=== PATIENT | male | born 1995 | race Caucasian/White ===

== ENCOUNTER 2019-08-31 16:00 | Emergency (ER) | payer OTHER, SELFPAY ==
--- NOTE | ~2019-08-31 | XR_ITS ---
EXAMINATION: XR abdomen/kub 1V EXAM DATE: 08/31/2019 16:43 INDICATION: Left lower abdominal pain for 4 days. Low pressure. TECHNIQUE: Frontal projection of the upper abdomen, frontal projection of the lower abdomen for inter pretation. There is no prior study for comparison. FINDINGS: Small amount of colonic stool and gas. No small bowel dilation, nonobstructive bowel gas pattern. There are no suspicious calcifications identified. There is no organomegaly suspected. The bones are unremarkable. Lung bases are clear. IMPRESSION: Unremarkable abdomen x-ray exam. Reviewed, dictated and finalized at location A.
--- NOTE | 2019-08-31 16:16 | ED.ABDPAIN ---
HPI - Abdominal Pain General Chief Complaint: Abdominal Pain Stated Complaint: abd pain Time Seen by Provider: 08/31/19 16:29 Source: patient and RN notes reviewed Mode of arrival: ambulatory Limitations: no limitations History of Present Illness HPI narrative: 24-year-old male presents with concern for constipation, abdominal pain. Reports several days ago he had diarrhea, so he took Imodium. Reports since Then He Is Been Only Having Small Soft Stools. Reports symptoms started wednesday after a 9 [address] ride. Denies fever, nausea, vomiting. Reports position improved symptoms, lying flat symptoms worsen. Reports symptoms are worse at night. Reports slightly decreased appetite MD elicited complaint: abdominal pain Related Data Home Medications Medication Instructions Recorded Confirmed fluoxetine [Prozac] 10 mg PO DAILY 08/31/19 08/31/19 Allergies Allergy/AdvReac Type Severity Reaction Status Date / Time No Known Allergies Allergy Verified 08/31/19 16:37 Review of Systems Review of Systems: Narrative: CONSTITUTIONAL: Denies malaise, chills, sweats, or fever. CARDIOVASCULAR: Denies chest pain, palpitations, or edema. RESPIRATORY: Denies cough or dyspnea. GASTROINTESTINAL: Reports left lower quadrant abdominal pain, constipation; reports small amount of soft watery stool. Denies nausea, vomiting, diarrhea, bloody, or mucous stools. GENITOURINARY: Denies dysuria or hematuria. MUSCULOSKELETAL: Denies myalgia. All systems reviewed & are unremarkable except as noted in HPI and below PMFSH Social History Social History Gender identity (if verbalized by the patient): Male Comments At time of signature, agree with nursing past medical, surgical, social and family history. There is no relevant family history pertinent to the presenting complaint Exam Narrative: Exam Narrative: GENERAL: Well-appearing, well-nourished, and in no acute distress. HEAD: Normocephalic EYES: PERRLA, conjunctivae clear ENT: Mucous membranes moist. NECK: Supple. No lymphadenopathy CHEST: Speaks in full sentences. No respiratory distress. HEART: Regular rate and rhythm. ABDOMEN: LLQ tenderness. Soft, flat, nondistended. No guarding, rebound tenderness, or rigid. No pulsatille masses. Bowel sounds present in all four quadrants. No organomegaly. Negative Kerr?s sign. No periumbilical tenderness. No Supra public tenderness or distension. Good femoral pulses bilaterally. No hernia noted. No scars or surface trauma. SKIN: Warm, dry, no rash. NEURO: Alert and oriented x3. PSYCH: Normal mood and affect Course Course Emergency Course: Patient is aware of, understands and agrees to be seen in the emergency department. Patient agrees to proceed directly to the emergency department. Portions of this record may have been created with voice recognition software Vital Signs Vital signs: Reviewed. Transfer Transfered to: [facility] Transportation: Other (Private vehicle) Transfer rationale: Abdominal pain Accepting physician: Dr. Pham Transfer comments: Patient stable for transfer via private vehicle MDM - Abdominal Pain MDM Narrative Medical decision making narrative: Patient's history and exam warrant further evaluation in the emergency department. Patient agrees to proceed directly to emergency department. Patient is stable for transfer via private vehicle Imaging Data My impression: Images reviewed, interpreted by radiologist, agree, see report. Radiologist's impression: EXAMINATION: XR abdomen/kub 1V EXAM DATE: 08/31/2019 16:43 INDICATION: Left lower abdominal pain for 4 days. Low pressure. TECHNIQUE: Frontal projection of the upper abdomen, frontal projection of the lower abdomen for interpretation. There is no prior study for comparison. FINDINGS: Small amount of colonic stool and gas. No small bowel dilation, nonobstructive bowel gas pattern. There are no suspicious calcifications identified. There is no organomegal
[2019-08-31 16:27] VITALS: BP 132/73; PULSE 84; RESP 18; TEMP 37.1; O2SAT 100
== END 2019-08-31 17:02 | disposition short-term general hospital (02) ==
PROVIDERS: Emergency Provider Nurse Practitioner; PCP Family Medicine
DX: R10.32 Left lower quadrant pain (principal)
CPT/HCPCS: 74018; 99203; G0463

== ENCOUNTER 2019-08-31 17:20 | Emergency (ER) | payer OTHER, SELFPAY ==
--- NOTE | ~2019-08-31 | CT_ITS ---
EXAMINATION: CT abdomen pelvis w con EXAM DATE: 08/31/2019 20:00 INDICATION: Left lower quadrant pain for 6 days. Diarrhea. TECHNIQUE: Spiral CT of the abdomen and pelvis was performed without contrast. Axial, coronal and s agittal images were reviewed. The dose-length product (DLP) for this examination was 202.33 mGy-cm. The exposure was tailored according to patient size (auto mA exposure control), and iterative recons truction (ASIR) was used as additional dose reduction technique. There is no prior study for compari son. FINDINGS: The liver, spleen, adrenal glands and pancreas are unremarkable. Gallbladder is unremarkab le. No biliary obstruction. Portal and splenic veins are patent. Kidneys enhance symmetrically. T here is no hydronephrosis. The prostate is unremarkable. The bladder is unremarkable. There is no retroperitoneal or pelvic lymphadenopathy. The appendix is normal. The stomach and small bowel are unremarkable. There is severe cecal wall ed geraldine suspected, consistent with colitis. No pneumatosis. Remainder of the colon is unremarkable. Trace reactive free pelvic fluid. No free intraperitoneal gas. The heart is normal in size. There are no pericardial or pleural effusions. The lung bases are unremarkable. The bones are normal. IMPRESSION: Significant ascending colonic wall edema, likely colitis. Reviewed, dictated and finalized at location A.
[2019-08-31 17:20] VITALS: BP 129/81; PULSE 78; RESP 16; TEMP 36.8; O2SAT 100
[2019-08-31 17:52] LABS: Basophils Percent Auto 0.5 % (0.2-1.2); Eosinophils Absolute Auto 0.1 K/mm3 (0-0.3); Eosinophils Percent Auto 2.3 % (0-4.4); Hematocrit 45.3 % (42.0-52.0); Hemoglobin 15.3 g/dL (14.0-18.0); Immature Granulocyte Absolute 0.01 K/mm3 (0.00-0.031); Immature Granulocyte Percent A 0.2 % (0-0.5); Lymphocytes Absolute Auto 2.21 K/mm3 (0.9-3.2); Lymphocytes Percent Auto 38.6 % (18.3-44.2); Mean Corpuscular HGB Conc 33.8 g/dl (32-36); Mean Corpuscular Hemoglobin 29.6 pg (26-34); Mean Corpuscular Volume 87.6 fl (80-100); Mean Platelet Volume 10.3 fl (7.4-10.4); Monocytes Absolute Auto 0.5 K/mm3 (0.1-0.6); Monocytes Percent Auto 8.6 % (2.6-8.5); Neutrophils Absolute Auto 2.9 K/mm3 (1.3-6.7); Neutrophils Percent Auto 49.8 % (45.5-73.1); Platelet Count Result 197 k/mm3 (150-375); Red Blood Count 5.17 M/mm3 (4.6-6.20); Red Cell Distribution Width 11.8 % (11.5-14.5); White Blood Count 5.7 K/mm3 (4.5-10.0)
[2019-08-31 18:05] LABS: Alanine Aminotransferase 15 U/L (4-50); Albumin Level 4.9 g/dL (3.5-5.1); Alkaline Phosphatase 67 U/L (38-126); Aspartate Amino Transferase 23 U/L (17-59); Bilirubin,Total 0.7 mg/dL (0.2-1.3); Blood Urea Nitrogen 8 mg/dL (9-20); Calcium 9.2 mg/dL (8.4-10.2); Carbon Dioxide 27 mmol/L (22-30); Chloride 103 mmol/L (98-107); Estimated CRCL calculation 109 ml/min; Estimated Glomerular Filt Rate > 60; Glucose 103 mg/dL (75-110); Lipase 40 U/L (23-300); Potassium 3.7 mmol/L (3.4-5.0); Sodium 139 mmol/L (137-145)
[2019-08-31 18:09] LABS: Add Urine Microscopic? NO; Appearance Urine Clear (Clear); Bilirubin Urine Negative (Negative); Blood Urine Negative (Negative); Color Urine Straw (Yellow); Glucose Urine UA Negative (Negative); Ketones Urine Negative (Negative); Leukocyte Esterase Ur Negative LEU/UL (Negative); Nitrate Urine Negative (Negative); Protein Urine Negative (Negative); Specific Grav Ur 1.009 (1.001-1.035); Urobilinogen Urine Negative mg/dL (<2.0)
--- NOTE | 2019-08-31 19:37 | ED.ABDPAIN ---
HPI - Abdominal Pain General Chief Complaint: Abdominal Pain Stated Complaint: ABD PAIN, CONSTIPATION Time Seen by Provider: 08/31/19 18:59 Source: patient and family Mode of arrival: ambulatory Limitations: no limitations History of Present Illness HPI narrative: Patient is a 24-year-old male referred from an urgent care facility for evaluation of persistent left lower quadrant pain over the past 6 days. Pain is been intermittent in nature, seems to be worsened with stress or anxiety. Described as a cramping, sharp, stabbing pain and intermittent pressure. Patient has also had 6 days of loose stools and intermittent watery stools. No blood or mucus present. No fever, weight loss, patient has had some intermittent nausea without vomiting. No abdominal distention. No history of abdominal pain in the past. Patient denies testicular pain, dysuria or hematuria. No flank pain. Related Data Home Medications Medication Instructions Recorded Confirmed fluoxetine [Prozac] 10 mg PO DAILY 08/31/19 08/31/19 Allergies Allergy/AdvReac Type Severity Reaction Status Date / Time No Known Allergies Allergy Verified 08/31/19 18:01 Review of Systems Review of Systems: Narrative: CONSTITUTIONAL: Denies fever, chills, or sweats. EYES: Denies visual changes, redness, or discharge. ENT: Denies rhinorrhea, congestion, sore throat, or otalgia. CARDIOVASCULAR: Denies chest pain, palpitations, or edema. RESPIRATORY: Denies cough or dyspnea. GASTROINTESTINAL: Reports abdominal pain, nausea, diarrhea GENITOURINARY: Denies dysuria or hematuria. SKIN: Denies rash or itching. MUSCULOSKELETAL: Denies back pain, joint pain, or myalgia. NEUROLOGIC: Denies headache, numbness, or weakness. [facility] Past Medical History Medical History (Updated 08/31/19 @ 20:18 by Darleen Sharpe MD) No pertinent past medical history Surgical History Surgical History (Updated 08/31/19 @ 19:39 by Darleen Sharpe MD) History of tonsillectomy Hx of tympanostomy tubes Social History Social History (Updated 08/31/19 @ 19:39 by Darleen Sharpe MD) Smoking status: Never smoker Alcohol intake: never Substance use: never Living arrangements: with family Gender identity (if verbalized by the patient): Male Exam Narrative: Exam Narrative: GENERAL: Awake, alert, conversant HEAD: Normocephalic, atraumatic. EYES: PERRLA and EOMI. ENT: Nares clear, no rhinorrhea or epistaxis. Mucous membranes moist. NECK: Supple. CHEST: No respiratory distress, breathing even and non labored HEART: Regular rate, sinus rhythm ABDOMEN:Non distended, mild left lower quadrant tenderness with deep palpation, no splenomegaly, no rebound, no rigidity EXTREMITIES: Normal range of motion. No edema. SKIN: Warm, dry, no rash. NEURO:No focal deficits. Alert and oriented x3 Course Vital Signs Vital signs: Vital Signs Temperature 36.8 C 08/31/19 17:20 Pulse Rate 78 08/31/19 17:20 Respiratory Rate 16 08/31/19 17:20 Blood Pressure 129/81 08/31/19 17:20 Pulse Oximetry 100 08/31/19 17:20 Temperature 36.8 C 08/31/19 17:20 Pulse Rate 78 08/31/19 17:20 Respiratory Rate 16 08/31/19 17:20 Blood Pressure 129/81 08/31/19 17:20 Pulse Oximetry 100 08/31/19 17:20 MDM - Abdominal Pain MDM Narrative Medical decision making narrative: Patient presented for evaluation of 6 days of worsening left lower quadrant pain and intermittent loose stools. The time of initial assessment, ABCs are intact and vital signs are stable. Physical exam notable for mild left lower quadrant tenderness. No testicular pain or urinary symptoms. CT scan confirms colitis. Patient will be given ciprofloxacin, also given GI follow-up. He was then discharged home in stable condition. Differential Diagnosis Differential diagnosis: Likely abdominal pain, acute appendicitis, constipation, diverticulitis, gastroenteritis and small bowel obstruction Lab Data Attestation: I revi
[2019-08-31] MEDS: DICYCLOMINE HCL INJ 20 MG/2 ML VIAL IM (20:20)
[2019-08-31 20:30] VITALS: BP 122/78; PULSE 100; RESP 17; O2SAT 97
== END 2019-08-31 20:30 | disposition home or self-care (01) ==
PROVIDERS: Emergency Provider Emergency Medicine
DX: K52.9 Noninfective gastroenteritis and colitis, unspecified (principal)
CPT/HCPCS: 36415; 74018; 74177; 80053; 81003; 83690; 85025; 96372; 99203; 99284; G0463; J0500; Q9967

== ENCOUNTER 2020-08-25 11:43 | Emergency (ER) | payer OTHER, SELFPAY ==
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
[2020-08-25 11:53] VITALS: BP 130/94; PULSE 95; RESP 18; TEMP 37; O2SAT 100
== END 2020-08-25 12:24 | disposition home or self-care (01) ==
PROVIDERS: Emergency Provider Nurse Practitioner Family
DX: M54.2 Cervicalgia (principal)
CPT/HCPCS: 99213; G0463